=== PATIENT | male | born 1965 | race Caucasian/White ===

== ENCOUNTER 2023-05-07 08:30 | Outpatient (CLI) | payer OTHER, SELFPAY | END 2023-05-07 08:31 | disposition home or self-care (01) | LOC: NFLDREF 05-08 11:12 | PROVIDERS: PCP Family Medicine; Referring Provider Family Medicine; Visit Provider Family Medicine | DX: Z12.5 Encounter for screening for malignant neoplasm of prostate (principal); Z13.220 Encounter for screening for lipoid disorders; Z13.1 Encounter for screening for diabetes mellitus | CPT/HCPCS: 80061; 82947; 84153 ==

== ENCOUNTER 2023-05-25 12:13 | Outpatient (CLI) | payer OTHER, SELFPAY ==
--- NOTE | 2023-05-25 13:38 | W.ANESCHARGE ---
Anesthesia Charges Start Date/Time Anesthesia Start Date: 05/25/23 Anesthesia Start Time: 13:03 Stop Date/Time Anesthesia Stop Date: 05/25/23 Anesthesia Stop Time: 13:30
== END 2023-05-25 12:14 | disposition home or self-care (01) ==
LOC: OP CLINIC 12:15
PROVIDERS: PCP Family Medicine; Visit Provider Internal Medicine
DX: Z12.11 Encounter for screening for malignant neoplasm of colon (principal); K64.8 Other hemorrhoids; K57.30 Diverticulosis of large intestine without perforation or abscess without bleeding
CPT/HCPCS: 00812; 45378; J2704